=== PATIENT | male | born 1960 | race Hispanic/Latino ===

== ENCOUNTER 2021-03-17 12:51 | Emergency (ER) | payer OTHER ==
[~2021-03-17] VITALS: Ht 177.8 cm; Wt 85.0 kg
[~2021-03-17 12:51] MED LIST: ASPIRIN EC81 MG PO; LISINOPRIL5 MG PO; METOPROL TAR25 M1 PO; SIMVASTATIN20 MG PO
[2021-03-17] MEDS ORDERED: ASPIRIN81 MG PO (13:23)
[2021-03-17] MEDS ORDERED: UNKNOWN CHOLESTEROL (13:23)
[2021-03-17 14:20] LABS: IMMATURE GRANULOCYTES 0.3 % (0.0-5.0); MEAN CELL VOLUME 87.9 fL CALC (80.0-100.0); MEAN CORPUSCULAR HGB CONC 34.1 g/dL CAL (32.0-36.0); NEUT# 3.67 thou/uL (1.82-7.42); RED BLOOD COUNT 4.97 mill/uL (4.70-6.10); RED CELL DISTRI WIDTH 11.8 % (11.5-15.5)
[2021-03-17 14:23] LABS: HEMATOCRIT 43.7 % (39.0-50.0); HEMOGLOBIN 14.9 g/dl (14.0-18.0)
[2021-03-17 14:29] LABS: ALKALINE PHOSPHATASE 77 u/l (38-126); BUN 19 mg/dL (9-20); BUN/CREATININE RATIO 18 (12-20 (CALC)); CARBON DIOXIDE 28 mmol/l (22-30); CHLORIDE 104 mmol/l (95-108); CREATININE 1.1 mg/dL (0.7-1.3); GFR > 60 ML/MIN (>=60 (CALC)); GFR FOR AFR.AMER. > 60 ML/MIN (>=60 (CALC)); SODIUM 140 mmol/l (137-146)
[2021-03-17 14:40] LABS: ALBUMIN 4.6 g/dL (3.2-5.0); ANION GAP 13 (6-22 (CALC)); BILIRUBIN, TOTAL 0.5 mg/dL (0.0-1.4); POTASSIUM 5.4 mmol/l (3.5-5.1); SGOT/AST 50 u/l (17-59); TOTAL PROTEIN 7.8 g/dL (6.3-8.2)
[2021-03-17 14:49] VITALS: BP 160/90
== END 2021-03-17 14:58 | disposition home or self-care (01) | DRG 316 ==
LOC: ED 12:51
PROVIDERS: Emergency Medicine
DX: R94.31 Abnormal electrocardiogram [ECG] [EKG] (principal); I45.6 Pre-excitation syndrome; Z95.0 Presence of cardiac pacemaker